=== PATIENT | female | born 1985 | race Caucasian/White ===

== ENCOUNTER 2022-01-04 10:02 | Outpatient (CLI) | payer OTHER, SELFPAY ==
--- NOTE | ~2022-01-04 | MM_ITS ---
EXAMINATION: MM screening piotr BI w therese HISTORY: Screening mammogram TECHNIQUE: Craniocaudal and mediolateral oblique 3-D tomosynthesis images were obtained and synthetic 2-D images were generated. CAD analysis was submitted and interpreted. COMPARISON: No prior mammogram is available for comparison at this institution. BREAST PARENCHYMAL COMPOSITION: The breasts are heterogeneously dense, which may obscure small masses . FINDINGS: There are subtle microcalcifications in the subareolar right breast; diagnostic mammogram w ith magnification views is recommended. Otherwise there is no evidence of suspicious mass, calcification, or architectural distortion to sugg est malignancy in either breast. IMPRESSION: 1. Subtle subareolar microcalcifications on the right 2. Diagnostic right mammogram with magnification views is recommended BI-RADS Category 0: Incomplete: Needs additional imaging evaluation. Reviewed, dictated and finalized at location [facility].
== END 2022-01-04 10:03 | disposition home or self-care (01) ==
LOC: ANHIMG 10:03
PROVIDERS: PCP Physician Assistant; Visit Provider Student in an Organized Health Care Education/Training Program
DX: Z12.31 Encounter for screening mammogram for malignant neoplasm of breast (principal)
CPT/HCPCS: 77063; 77067

== ENCOUNTER 2022-01-31 12:24 | Outpatient (CLI) | payer OTHER, SELFPAY ==
--- NOTE | ~2022-01-31 | MM_ITS ---
EXAMINATION: MM diagnostic mammo unilat RT HISTORY: Subtle subareolar microcalcifications reported on 01/2022 screening mammogram TECHNIQUE: ML view of right breast. Magnification views of right breast in ML, MLO and CC projections .. CAD analysis was submitted and interpreted. COMPARISON: 01/2022 bilateral screening mammogram FINDINGS: Grouped microcalcifications are noted in the superolateral subareolar area at approximately 2:00. There are multiple scattered largely punctate microcalcifications throughout much of the right breast . No definite malignant features are evident. Heterogeneously dense stroma may obscure masses. Right breast complete ultrasound examination is recommended. IMPRESSION: 1. Heterogeneously dense stroma and scattered solitary grouped microcalcifications 2. Right breast complete ultrasound examination is recommended BI-RADS Category 0: Incomplete: Needs additional imaging evaluation. Reviewed, dictated and finalized at location [facility]. IMPRESSION: 1. Heterogeneously dense stroma and scattered solitary grouped microcalcificati ons 2. Right breast complete ultrasound examination is recommended BI-RADS Category 0: Incomplete: Needs additional imaging evaluation.
== END 2022-01-31 12:25 | disposition home or self-care (01) ==
LOC: ANHIMG 12:25
PROVIDERS: PCP Physician Assistant; Visit Provider Student in an Organized Health Care Education/Training Program
DX: R92.8 Other abnormal and inconclusive findings on diagnostic imaging of breast (principal)
CPT/HCPCS: 77065

== ENCOUNTER 2022-02-20 11:12 | Outpatient (CLI) | payer OTHER, SELFPAY ==
--- NOTE | ~2022-02-20 | US_ITS ---
US breast RT complete DATE: 02/20/2022 11:39 INDICATION: Grouped subareolar microcalcifications scattered punctate microcalcifications, heterogene ously dense mammographic fibroglandular stroma which may obscure masses reported on 01/31/2022 diagnos tic mammogram TECHNIQUE: High resolution complete right breast ultrasound including all 4 quadrants and subareolar area COMPARISON: 01/2022 bilateral screening mammogram 01/31/2022 diagnostic right mammogram FINDINGS: No suspicious mass or shadowing of the right breast is evident. No other significant sonogr aphic finding is noted. IMPRESSION: BI-RADS Category 3: Probably benign finding; probable benign breast calcifications includ ing subareolar area Recommendation: 6 month diagnostic right mammogram follow-up Reviewed, dictated and finalized at [facility]. Reviewed, dictated and finalized at [facility]. IMPRESSION: BI-RADS Category 3: Probably benign finding; probable benign breast calcifications including subareolar area Recommendation: 6 month diagnostic right mammogram follow-up
== END 2022-02-20 11:13 | disposition home or self-care (01) ==
PROVIDERS: PCP Physician Assistant; Visit Provider Student in an Organized Health Care Education/Training Program
DX: R92.2 Inconclusive mammogram (principal); N64.4 Mastodynia; R92.8 Other abnormal and inconclusive findings on diagnostic imaging of breast
CPT/HCPCS: 76641

== ENCOUNTER 2023-03-02 12:14 | Outpatient (CLI) | payer OTHER, SELFPAY ==
--- NOTE | ~2023-03-02 | MMUS_ITS ---
EXAMINATION: MM diagnostic piotr BI w therese, US breast RT complete HISTORY: Six-month follow-up of probable benign grouped subareolar microcalcifications TECHNIQUE: ML, MLO and CC 3-D tomosynthesis images of both breasts were performed and synthetic 2-D i mages were generated. ML, MLO and CC magnification views of right breast. CAD analysis was submitted and interpreted. High resolution complete right breast ultrasound was performed. COMPARISON: 01/04/2022 bilateral screening mammogram 01/31/2022 diagnostic right mammogram 02/20/2022 complete right breast ultrasound examination BREAST PARENCHYMAL COMPOSITION: The breasts are heterogeneously dense, which may obscure small masses . FINDINGS: MAMMOGRAPHIC FINDINGS: Since 01/04/2022 there are extensive microcalcifications, most of which are new since 01/04/2022. The kris rocalcifications involve primarily the mid to upper aspect of the medial and lateral right breast. Th e microcalcifications are mostly punctate and granular, but the extensive proliferation of the microc alcifications since 01/04/2022 is very suspicious for possible DCIS or invasive ductal carcinoma. ULTRASOUND: No focal suspicious mass lesion or suspicious shadowing is evident. IMPRESSION: 1. Interval development of extensive microcalcifications of the mid to upper breast medially and late rally since 01/04/2022 2. 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 Dr. De La Rosa telephoned the report and stereotactic biopsy recommendation on 03/02/2023 at 14[address] hours dire ctly to Dr. Marina. Reviewed, dictated and finalized at [facility]. IMPRESSION: 1. Interval development of extensive microcalcifications of the mid to upper br east medially and laterally since 01/04/2022 2. Stereotactic biopsy of some telephone sales representative microcalcifications is recommende d BI-RADS category [address], [address] De La Rosa telephoned the report and stereotactic biopsy recommendation on 023 at [address] Marina.
== END 2023-03-02 12:15 | disposition home or self-care (01) ==
LOC: ANHIMG 12:15
PROVIDERS: PCP Physician Assistant; Visit Provider Obstetrics & Gynecology
DX: N64.4 Mastodynia (principal); R92.0 Mammographic microcalcification found on diagnostic imaging of breast
CPT/HCPCS: 76641; 77062; 77066; G0279